=== PATIENT | male | born 1950 | race Two or more races ===

== ENCOUNTER 2017-10-15 09:48 | Outpatient (CLI) | payer MEDICARE ==
[2017-12-06] MEDS ORDERED: AMLO5TAB7 PO (15:59)
== END 2017-10-15 23:59 | disposition home or self-care (01) ==
LOC: RAD 09:48
PROVIDERS: ATTEND Internal Medicine Hematology & Oncology
DX: C18.9 Malignant neoplasm of colon, unspecified (principal)
CPT/HCPCS: 78306; A9503

== ENCOUNTER 2017-12-06 14:50 | Inpatient (IN) | payer MEDICARE ==
[~2017-12-06] VITALS: Ht 165.1 cm; Wt 93.4 kg
--- NOTE | 2017-12-06 15:20 | NUR ---
PT BIB DAUGHTER FOR RECTAL BLEED, BRIGHT RED PER DAUGTHER. STARTED HAVING DIARRHEA POST CHEMO. VSS. SEEN BY MD FOR EVAL. SAFETY AND COMFORT MEASURES PROVIDED. WILL MONITOR.
[2017-12-06] MEDS ORDERED: IV NS 0.9% 1,000 ML BAG IV ONE (15:30)
--- NOTE | 2017-12-06 15:40 | NUR ---
IV ACCESS STARTED. BLOOD DRAWN FOR LABS. MEDICATED ORDERED.
[2017-12-06 15:48] LABS: BASOPHILS # (AUTO) 0.2 /CMM (0.0-0.2); BASOPHILS % (AUTO) 2.1 % (0.0-2.0); EOSINOPHILS % (AUTO) 0.7 % (0.0-6.0); HEMATOCRIT 35 % (39-51); LYMPHOCYTES % (AUTO) 13.1 % (20.0-44.0); MEAN CORPUSCULAR HEMOGLOBIN 31 PG (26.0-33.0); MEAN CORPUSCULAR HGB CONC 34 g/dl (31.0-36.0); MEAN CORPUSCULAR VOLUME 91 fL (80-96); MONOCYTES # (AUTO) 0.7 /CMM (0.1-1.30); MONOCYTES % (AUTO) 10.1 % (2.0-12.0); NEUTROPHILS # (AUTO) 5.4 /CMM (1.8-8.9); PLATELET COUNT (AUTO) 257 /CMM (150-450); RDW COEFFICIENT OF VARIATION 18.9 (11.5-15.0); RED BLOOD CELL COUNT(AUTO) 3.86 MIL/uL (4.5-6.0); WHITE BLOOD COUNT (AUTO) 7.4 K/uL (4.3-11.0)
[2017-12-06] MEDS ORDERED: LORA1TAB PO (15:59)
[2017-12-06] MEDS ORDERED: ONDA8TAB9 PO (15:59)
[2017-12-06] MEDS ORDERED: TRIA1TAB3 PO (15:59)
[2017-12-06] MEDS ORDERED: CAPE500T15 PO (15:59)
[2017-12-06] MEDS ORDERED: ATOR10TA PO (15:59)
[2017-12-06] MEDS ORDERED: ERGO500014 PO (15:59)
[2017-12-06] MEDS ORDERED: LISI-603 PO (15:59)
[2017-12-06] MEDS ORDERED: AMLO5TAB2 PO (15:59)
[2017-12-06] MEDS ORDERED: DOCU-270 PO (15:59)
[2017-12-06] MEDS ORDERED: DEXA4TAB PO (15:59)
[2017-12-06] MEDS ORDERED: CLOP75TA15 PO (15:59)
[2017-12-06 16:02] LABS: INR 0.98 (0.85-1.15)
[2017-12-06 16:04] LABS: ALANINE AMINOTRANSFERASE 33 U/L (12-78); ALBUMIN 3.1 g/dL (3.4-5.0); ALKALINE PHOSPHATASE 132 U/L (46-116); ASPARTATE AMINOTRANSFERASE 59 U/L (15-37); BILIRUBIN,DIRECT 0.2 mg/dL (0.0-0.2); BILIRUBIN,TOTAL 0.5 mg/dL (0.2-1.0); CALCIUM, SERUM 7.6 mg/dL (8.5-10.1); CARBON DIOXIDE 20 mmol/L (21-32); CHLORIDE 95 mmol/L (98-107); CREATININE 0.6 mg/dL (0.6-1.3); GLUCOSE 117 mg/dL (74-106); LIPASE 191 U/L (73-393); POTASSIUM 3.1 mmol/L (3.5-5.1); SODIUM SERUM 126 mmol/L (136-145); TOTAL PROTEIN, SERUM 6.2 g/dL (6.4-8.2); UREA NITROGEN, BLOOD 9 mg/dL (7-18)
[2017-12-06 16:05] LABS: TROPONIN I < 0.017 ng/mL (0.00-0.056)
[2017-12-06] MEDS ORDERED: BEVA25VI IV (16:10)
--- NOTE | 2017-12-06 17:12 | NUR ---
REPORT GIVEN TO HERBERT NAILS FOR MS 204.
[2017-12-06 18:00] VITALS: BP 120/75
--- NOTE | 2017-12-06 18:00 | NUR ---
RECEIVED PATIENT FROM ER VIA GURNEY. PATIENT AMBULATORY, A/OX4, SERBIAN SPEAKING. CAME IN FOR GI BLEED/RECTAL BLEED. DARRON BENTLEY,[employer] ASSISTANT MANAGER NOTIFIED, AWAITING FOR ADMITTING ORDERS. FAMILY AT BEDSIDE. NO ACUTE DISTRESS, NO SOB. DENIED PAIN OR DISCOMFORT. IV SITE ON RIGHT HAND, PATENT AND INTACT. SAFETY MEASURES IN PLACE. BED IN LOW/LOCKED POSITION, SIDERAILS UPX2, CALL LIGHT IN REACH. WILL ENDORSED TO NIGHT RN FOR YUDY.
[2017-12-06] MEDS ORDERED: ONDANSETRON HCL/PF 4 MG/2 ML VIAL IVP PRN (18:30)
[2017-12-06] MEDS ORDERED: Z GUARD REMEDY 2 OZ OINT TP PRN (18:30)
[2017-12-06] MEDS ORDERED: MAGNESIUM HYDROXIDE 30 ML UDC PO PRN (18:30)
[2017-12-06] MEDS ORDERED: MORPHINE SULFATE INJ 2 MG/ML DISP.SYRIN IV PRN (18:30)
[2017-12-06] MEDS ORDERED: MAG HYDROX/AL HYDROX/SIMETH 30 ML UDC PO PRN (18:30)
[2017-12-06] MEDS ORDERED: ACETAMINOPHEN 325 MG TABLET PO PRN (18:30)
[2017-12-06] MEDS ORDERED: LORAZEPAM 1 MG TABLET PO PRN (18:30)
[2017-12-06] MEDS ORDERED: DOCUSATE SODIUM 100 MG CAPSULE PO PRN (18:30)
[2017-12-06] MEDS ORDERED: HYDROCODONE/APAP 5/325MG 1 EACH TABLET PO PRN (18:30)
[2017-12-06] MEDS: PANTOPRAZOLE 40 MG VIAL IV SCH (19:04)
--- NOTE | 2017-12-06 19:30 | NUR ---
ENDORSED PATIENT TO JESU VARGAS FOR YUDY. PATIENT IN STABLE CONDITION. KEPT PATIENT SAFE AND COMFORTABLE. FAMILY AT BEDSIDE. BED IN LOW/LOCKED POSIITON, SIDERAILS UPX2, CALL LIGHT IN REACH.
--- NOTE | 2017-12-06 19:35 | NUR ---
RN INITIAL NOTES: RECEIVED REPORT FROM HERBERT NAILS. PT IN BED, AWAKE, A/O X3 BULGARIAN SPEAKING ONLY FAMILY AT BED SIDE TRANSLATING FOR THE PT, SON WILL STAY 24/7 TO ASSIST PT AND HELP IN TRANSLATION. PT DENIES ANY PAIN OR DISCOMFORT ALTHOUGH VERBALIZING HE'S HAVING BLOODY STOOL, PT HAS RIGHT CW PORTACATH IN PLACED, NO S/S OF INFECTION OR REDNESS NOTED, SITE WAS COVERED WITH ROUND BANDAGE/BAND AID. PT HAS IV ACCESS ON RIGHT HAND G 20 PATENT AND FLUSHING WELL, ON HL. NO S/S OF REDNESS OR INFILTRATION NOTED ON SITE. PT IS AMBULATORY, SKIN CHECKED PERFORMED AND NO SKIN ISSUES NOTED. ORIENTED PT TO UNIT POLICY AND HOURLY ROUNDING. DISCUSSED PLAN OF CARE TO PT AND FAMILY. WILL MONITOR FOR FREQUENCY OF BLOODY STOOL AND AMOUNT (PLACED HAT IN THE TOILET BOWL). SAFETY PRECAUTIONS FOR FALL INITIATED, CALL LIGHT IN REACH, WILL CONTINUE MONITORING PT.
--- NOTE | 2017-12-06 19:40 | NUR ---
rn notes: paged epic java solutions architect regarding clarification of order, dr hopson placed admit to order as telemetry gi bleed, but on his h&p, plan is med surg admit. pt is a chemo patient from dr swain's office, with active gi bleed, and per pt and daughter he had clots noted, placed container/hat on pt's toilet bowl and instructed to saved stool and will be send to lab for stool ob. awaiting callback from
[2017-12-06 20:00] VITALS: BP 113/73
--- NOTE | 2017-12-06 20:06 | NUR ---
RN NOTES: RECEIVED CALL FROM JOSSY NAILS SUP, TRANSFER PT TO ROOM 103.
[2017-12-06 20:09] VITALS: BP 113/73
--- NOTE | 2017-12-06 20:23 | NUR ---
rn notes: received call from radiation therapy technologist md regarding pt's admit status, per radiation therapy technologist md pt okay to be med surg status, dx gi bleed, also md made aware of active gi bleeding of pt
[2017-12-06] MEDS: IV NS 0.9% 1,000 ML IV PRN (21:18)
--- NOTE | 2017-12-06 21:20 | NUR ---
rn notes: pt had bm, bloody stool small amount, stool will be sebd to lab for STOOL OB, lab made aware to tile picker specimen
[2017-12-07] VITALS: BP 115/75
--- NOTE | 2017-12-07 06:48 | NUR ---
rn closing notes: pt in bed, remains npo, iv access remains patent and flushing well, infusing with ns at 75ml/hr, iv site free from redness, no infiltration noted. vs remains stable, for gi consult, stool sent for ob awaiting result. pt remains to have bloody stool x1 small amount. hat remains in toilet bowl to assess amount of bleeding. safety precautions for fall remains engaged, call light in reach, will endorse to day rn for continuity of care.
--- NOTE | 2017-12-07 07:24 | NUR ---
RN OPENING NOTES RECEIVED PATIENT IN BED RESTING, IN STABLE CONDITION. FAMILY AT BEDSIDE FOR TRANSLATION. NO ACUTE DISTRESS, NO SOB. DENIED PAIN OR DISCOMFORT. IV SITE INTACT AND PATENT. KEPT PATIENT NPO. KEPT PATIENT SAFE AND COMFORTABLE. BED IN LOW/LOCKED POSITION, SIDERAILS UPX2, CALL LIGHT IN REACH. WILL CONTINUE TO MONITOR ACCORDINGLY.
[2017-12-07 07:48] LABS: BASOPHILS % (AUTO) 0.3 % (0.0-2.0); HEMATOCRIT 35 % (39-51); LYMPHOCYTES % (AUTO) 14.4 % (20.0-44.0); MEAN CORPUSCULAR HEMOGLOBIN 32 PG (26.0-33.0); MEAN CORPUSCULAR HGB CONC 35 g/dl (31.0-36.0); MEAN CORPUSCULAR VOLUME 94 fL (80-96); MONOCYTES # (AUTO) 0.6 /CMM (0.1-1.30); MONOCYTES % (AUTO) 9.6 % (2.0-12.0); NEUTROPHILS # (AUTO) 4.9 /CMM (1.8-8.9); NEUTROPHILS % (AUTO) 74.7 % (43.0-81.0); PLATELET COUNT (AUTO) 229 /CMM (150-450); RDW COEFFICIENT OF VARIATION 19.9 (11.5-15.0); WHITE BLOOD COUNT (AUTO) 6.6 K/uL (4.3-11.0)
[2017-12-07 08:00] VITALS: BP 104/59
[2017-12-07 08:03] LABS: CALCIUM, SERUM 7.4 mg/dL (8.5-10.1); CREATININE 0.6 mg/dL (0.6-1.3); MAGNESIUM 2.3 mg/dL (1.8-2.4); PHOSPHORUS 1.6 mg/dL (2.5-4.9); POTASSIUM 3.3 mmol/L (3.5-5.1)
[2017-12-07 08:07] LABS: THYROID STIMULATING HORMONE 1.375 uIU/mL (0.358-3.74)
[2017-12-07] MEDS: AMLODIPINE BESYLATE 5 MG TABLET PO SCH ×2 (09:00→17:20)
[2017-12-07] MEDS: LISINOPRIL (20MG) 20 MG TABLET PO SCH ×2 (09:00→17:21)
[2017-12-07] MEDS: PANTOPRAZOLE 40 MG VIAL IV SCH ×2 (09:43→17:18)
[2017-12-07] MEDS: IV NS 0.9% 1,000 ML IV PRN (09:48)
[2017-12-07] MEDS: ATORVASTATIN 10 MG TABLET PO SCH (11:33)
[2017-12-07] MEDS: POTASSIUM CL. PREMIX PERIPHER. 50 ML IV SCH ×2 (11:33→12:39)
--- NOTE | 2017-12-07 11:35 | NUR ---
ALIA JAQUEZ FOR GI ON BEDSIDE TALKING TO PATIENT. PLAN FOR EGD/COLONOSCOPY ON SATURDAY.
[2017-12-07 11:53] LABS: IRON, SERUM 51 ug/dl (50-175); TOTAL IRON BINDING CAPACITY 238 ug/dl (250-450)
[2017-12-07] MEDS ORDERED: K PHOS NEUTRAL 250 MG TABLET PO ONE (12:00)
[2017-12-07 12:07] LABS: OCCULT BLOOD STOOL POSITIVE (NEGATIVE)
[2017-12-07 16:00] VITALS: BP 120/72
[2017-12-07] MEDS: SUCRALFATE 1 G TABLET PO SCH ×2 (17:21→21:30)
--- NOTE | 2017-12-07 19:00 | NUR ---
RN CLOSING NOTES PATIENT IN STABLE CONDITION. ALL NEEDS ATTENDED AND PROVIDED. KEPT PATIENT SAFE AND COMFORTABLE. BED IN LOW/LOCKED POSITION, CALL LIGHT IN REACH. ENDORSED TO NIGHT RN FOR YUDY.
--- NOTE | 2017-12-07 19:15 | NUR ---
RN INITIAL NOTES: RECEIVED REPORT FROM HERBERT NAILS, PT IN BED, AWAKE, A/O X3 ON RA RESPIRATION EVEN AND UNLABORED, DENIES ANY PAIN AT THIS TIME. FAMILY AT BED SIDE. REPORTED PT TO HAVE SOFT STOOL BLACK IN COLOR, MD AWARE. PT SCHEDULED FOR EGD COLONOSCOPY ON SATURDAY PER GI 12/09/17, CONSENT SECURED BY DAY JESU GODINEZ SIGNED BY PT'S DAUGHTER. DAUGHTER STATED GI EXPLAINED TO THEM ABOUT POSSIBILITY OF STARTING BOWEL PREP TONIGHT TO MAKE SURE PT IS WELL CLEAN BEFORE PROCEDURE. IV ACCESS ON RIGHT HAND G 20 PATENT AND FLUSHING WELL, FREE FROM REDNESS OR INFILTRATION, INFUSING WITH NS AT 75ML/HR. PT TOLERATING CLEAR LIQUID DIET. RIGHT CW PORTACATH IN PLACED, NO S/S OF INFECTION NOTED, NO REDNESS, NO DRAINAGE NOTED. REMAIN WITH COVER. DISCUSSED PLAN OF CARE FOR TONIGHT. SAFETY PRECAUTIONS FOR FALL INITIATED, CALL LIGHT IN REACH, WILL CONTINUE MONITORING PT.
--- NOTE | 2017-12-07 19:30 | NUR ---
JESU NOTES: LEONID MENDEZ,GIVEN ORDER TO START BOWEL PREP FOR THE PT TONIGHT, THERE'S A SCHEDULE EGD/COLONOSCOPY ON Saturday12/09/17 FOR THE PT. ND IN [facility] THERE'S SCHEDULE MAG CITRATE AND GOLYTELY PREP FOR TOMORROW DATED 12/08 AT 0700AM. CLARIFIED WITH LEONID IF SHE WANTS TO START THE PREP TONIGHT, PER GI, "START BOWEL PREP TONIGHT 12/07/18" Addendum: 12/07/17 at 2015 by BELIA FLORES RN CORRECTION OF DATE: JESU NOTES: LEONID MENDEZ,GIVEN ORDER TO START BOWEL PREP FOR THE PT TONIGHT, THERE'S A SCHEDULE EGD/COLONOSCOPY ON Saturday12/09/17 FOR THE PT. ND IN [facility] THERE'S SCHEDULE MAG CITRATE AND GOLYTELY PREP FOR TOMORROW DATED 12/08 AT 0700AM. CLARIFIED WITH LEONID IF SHE WANTS TO START THE PREP TONIGHT, PER GI, "START BOWEL PREP TONIGHT 12/07/17"
[2017-12-07 20:00] VITALS: BP_SYST 121; BP_DIAS 72; BP_DIAS 78
[2017-12-07] MEDS ORDERED: MAGNESIUM CITRATE 296 ML BOTTLE PO ONE (20:30)
[2017-12-07] MEDS ORDERED: PEG 3350/NA SULF,BICARB,CL/KCL 4,000 ML BOTTLE PO ONE (20:30)
--- NOTE | 2017-12-07 20:42 | NUR ---
RN NOTES: RECEIVED CALL FROM LEONID CHRIS GI RESIDENT SERVICE COORDINATOR, SHE STATED "START BOWEL PREP FIRST THING IN THE MORNING TOMORROW WITH HIS MORNING MEDS 12/08/17 AT 0700AM"
[2017-12-07] MEDS ORDERED: ZOLP10TA6 PO (20:55)
--- NOTE | 2017-12-07 21:08 | NUR ---
RN NOTES: PT'S DAUGHTER TRANSLATED FOR THE PT, PT REQUESTING HIS SLEEPING PILL, SHE STATED PT ON SLEEPING PILL AT HOME, AMBIEN 10MG TAB EVERY NIGHT FOR SLEEP, PAGED EPIC PROCUREMENT ASSISTANT PT DOESNT HAVE ANY PRN SLEEPING PILL ORDER, AWAITING CALLBACK
--- NOTE | 2017-12-07 21:12 | NUR ---
RN NOTES: RECEIVED CALLBACK FROM SWEATBAND CUTTING MACHINE OPERATOR EPIC , GERONIMO DUMAS TO GIVE AMBIEN 10 MG TAB HS PRN FOR SLEEP
[2017-12-07] MEDS ORDERED: ZOLPIDEM TARTRATE 10 MG TABLET PO PRN (21:30)
--- NOTE | 2017-12-07 21:30 | NUR ---
PRN AMBIEN: PT REQUESTED SLEEPING PILL, PRN AMBIEN 10 MG ADMINISTERED AT THIS TIME, OKAY TO GIVE PER MD
[2017-12-08] MEDS: IV NS 0.9% 1,000 ML IV PRN ×2 (01:41→15:13)
--- NOTE | 2017-12-08 05:57 | NUR ---
RN NOTES: PT ACCIDENTALLY KNOCK OFF IV ACCESS WHEN HE USED THE BATHROOM, PRESSURED DRESSING APPLIED. PT PREFERS TO USE RIGHT HAND ONLY FOR IV STATED HE'S LEFT HANDED AND USING LEFT HAND IN DOING DAILY ROUTINES, ALL TRANSLATED BY LISA AUGUSTE. NEW IV ACCESS INSERTED ON RIGHT HAND G 22, GOOD BLOOD RETURN NOTED, FLUSHED WITH SALINE, CONNECTED BACK TO IVF.
[2017-12-08] MEDS: SUCRALFATE 1 G TABLET PO SCH ×4 (06:30→22:52)
--- NOTE | 2017-12-08 06:30 | NUR ---
RN NOTES: STARTED BOWEL PREP. INSTRUCTED PT TO DRINK GOLYTELY, HE PREFERRED LEMON FLAVOR, POUR IT ON A CUP, AND THE REST WAS TRANSFERRED TO A PITCHER SO ITS EASY FOR PT TO POUR THE GOLYTELY ON HIS OWN. MAG CITRATE TO BE DRINK AFTER HE FINISHED THE GOLYTELY, PT UNDERSTAND, ALL TRANSLATED BY MOLINA BASHIR CNA
--- NOTE | 2017-12-08 06:44 | NUR ---
RN CLOSING NOTES: PT IN BED, AWAKE, TAKING GOLYTELY AT THIS TIME WITH LEMON FLAVOR, DENIES ANY PAIN OR DISCOMFORT AT THIS TIME, IV ACCESS REMAINS PATENT AND FLUSHING WELL, INFUSING WITH NS AT 75ML/HR. SITE FREE FROM REDNESS OR INFILTRATION. VS REMAINS STABLE, NEEDS ATTENDED, SAFETY PRECAUTIONS FOR FALL REMAINS ENGAGED, CALL LIGHT IN REACH, WILL ENDORSE TO DAY RN FOR YUDY.
[2017-12-08 06:47] LABS: BASOPHILS # (AUTO) 0.1 /CMM (0.0-0.2); BASOPHILS % (AUTO) 1.4 % (0.0-2.0); EOSINOPHILS % (AUTO) 2.6 % (0.0-6.0); HEMATOCRIT 34 % (39-51); HEMOGLOBIN 11.3 g/dL (13.5-17.5); LYMPHOCYTES # (AUTO) 1.2 /CMM (0.8-4.8); MEAN CORPUSCULAR HEMOGLOBIN 31 PG (26.0-33.0); MEAN CORPUSCULAR HGB CONC 33 g/dl (31.0-36.0); MEAN CORPUSCULAR VOLUME 95 fL (80-96); MONOCYTES # (AUTO) 0.7 /CMM (0.1-1.30); MONOCYTES % (AUTO) 10.3 % (2.0-12.0); NEUTROPHILS # (AUTO) 4.3 /CMM (1.8-8.9); NEUTROPHILS % (AUTO) 66.7 % (43.0-81.0); PLATELET COUNT (AUTO) 217 /CMM (150-450); RDW COEFFICIENT OF VARIATION 19.7 (11.5-15.0); RED BLOOD CELL COUNT(AUTO) 3.61 MIL/uL (4.5-6.0); WHITE BLOOD COUNT (AUTO) 6.4 K/uL (4.3-11.0)
[2017-12-08] MEDS ORDERED: MAGNESIUM CITRATE 296 ML BOTTLE PO ONE (07:00)
[2017-12-08] MEDS ORDERED: PEG 3350/NA SULF,BICARB,CL/KCL 4,000 ML BOTTLE PO ONE (07:00)
[2017-12-08 07:10] LABS: CALCIUM, SERUM 7.3 mg/dL (8.5-10.1); CREATININE 0.6 mg/dL (0.6-1.3); PHOSPHORUS 1.6 mg/dL (2.5-4.9); POTASSIUM 3.6 mmol/L (3.5-5.1)
--- NOTE | 2017-12-08 07:30 | NUR ---
MS RN OPENING NOTES RECEIVED PT STANDING IN ROOM WATCHING TELEVISION. PT IS A/O X3, AFEBRILE. RESPIRATIONS ARE EVEN AND UNLABORED, NOT IN ANY ACUTE DISTRESS NOTED. PT DENIES ANY PAIN AT THIS TIME, NO N/V OR SOB NOTED. PT STARTED ON GOLYTELY AND TOLERATING WELL. IV SITE INTACT, NO INFILTRATION NOTED. DRESSING KEPT CLEAN AND DRY. SAFETY MEASURES ARE IN PLACE. INSTRUCTED PT TO USE CALL LIGHT WHEN ASSISTANCE IS NEEDED, CALL LIGHT IS LEFT WITHIN REACH. WILL CONTINUE TO MONITOR THROUGHOUT SHIFT FOR CONTINUITY OF CARE.
[2017-12-08 08:00] VITALS: BP 123/65
[2017-12-08] MEDS: ATORVASTATIN 10 MG TABLET PO SCH (08:53)
[2017-12-08] MEDS: AMLODIPINE BESYLATE 5 MG TABLET PO SCH ×2 (08:53→16:34)
[2017-12-08] MEDS: PANTOPRAZOLE 40 MG VIAL IV SCH ×2 (08:53→16:33)
[2017-12-08] MEDS: LISINOPRIL (20MG) 20 MG TABLET PO SCH ×2 (08:54→16:34)
[2017-12-08] MEDS ORDERED: ERGOCALCIFEROL (VITAMIN D 2) 50,000 UNIT CAPSULE PO SCH (09:00)
[2017-12-08] MEDS ORDERED: NEUTRA PHOS 1 POWD.PACKET PO ONE (11:00)
--- NOTE | 2017-12-08 11:00 | NUR ---
MS RN NOTES PT SEEN AND EXAMINED BY DARRON BENTLEY NP AT BEDSIDE.
[2017-12-08 16:00] VITALS: BP 121/71
--- NOTE | 2017-12-08 18:10 | NUR ---
MS RN CLOSING NOTES ALL DUE MEDS GIVEN, NEEDS MET AND ANTICIPATED. PT REMAINS A/O X3-4, AFEBRILE. RESPIRATIONS ARE EVEN AND UNLABORED, NOT IN ANY ACUTE DISTRESS NOTED. PT DENIES ANY PAIN, N/V, SOB. IV SITE INTACT, NO INFILTRATION NOTED. DRESSING KEPT CLEAN AND DRY. IV FLUIDS INFUSING AT 75ML/HR AND TOLERATING WELL. SAFETY MEASURES ARE IN PLACE. CALL LIGHT IS LEFT WITHIN REACH. WILL ENDORSE TO NEXT SHIFT FOR CONTINUITY OF CARE.
--- NOTE | 2017-12-08 19:35 | NUR ---
RN OPENING NOTES RECEIVED REPORT FROM VALDEMAR KERN. FOUND Pt AWAKE, SITTING UP IN BED. FAMILY VISITING AT BEDSIDE. Pt IS A/OX4, TURKISH SPEAKING ONLY, IS VERBAL, AND ABLE TO MAKE NEEDS KNOWN. NO S/S OF ACUTE DISTRESS OR SOB NOTED. NO C/O PAIN AT THIS TIME. IV ACCESS ON RHAND #22G, NS @75ML/HR. Pt SCHEDULED FOR EGD/COLONOSCOPY TOMORROW SATURDAY AM; CONSENT SIGNED. WILL BE NPO STARTING JOHANA EVANS. SAFETY MEASURES IN PLACE. BED LOW, LOCKED, HOB ELEVATED, SIDE RAILS UP, CALL LIGHT AND BEDSIDE TABLE WITHIN REACH. WILL CONTINUE TO MONITOR Pt THROUGHOUT THE NIGHT FOR SAFETY.
[2017-12-08 20:00] VITALS: BP 141/79
--- NOTE | 2017-12-08 21:00 | NUR ---
JULES COSTA (DAUGHTER):
[2017-12-09] MEDS ORDERED: NA PHOS,M-B/NA PHOS,DI-BA 1 EA ENEMA RC PRN (06:00)
--- NOTE | 2017-12-09 06:30 | NUR ---
RN CLOSING NOTES NO SIGNIFICANT CHANGES IN Pt's CONDITION. Pt REMAINS STABLE AT THIS TIME. NO S/S OF ACUTE DISTRESS OR SOB NOTED DURING THE NIGHT. ALL NEEDS MET AND ATTENDED TO. SAFETY MEASURES IN PLACE. BED LOW, LOCKED, HOB ELEVATED, SIDE RAILS UP, CALL LIGHT AND BEDSIDE TABLE WITHIN REACH. Pt HAS BEEN NPO SINCE JOHANA EVANS. SCHEDULED FOR EDG AND COLONOSCOPY TODAY AT 0830AM. WILL ENDORSE TO DAYSHIFT RN FOR Pt's YUDY.
[2017-12-09] MEDS ORDERED: ANESTHESIA TRAY IN PYXIS 1 EA TRAY MC ONE (07:18)
[2017-12-09 07:21] LABS: CALCIUM, SERUM 7.7 mg/dL (8.5-10.1); CREATININE 0.6 mg/dL (0.6-1.3); PHOSPHORUS 1.7 mg/dL (2.5-4.9); POTASSIUM 3.3 mmol/L (3.5-5.1)
--- NOTE | 2017-12-09 07:30 | NUR ---
RN OPENING NOTES RECEIVED PATIENT IN BED RESTING, IN STABLE CONDITION. NO ACUTE DISTRESS, NO SOB. DENIED PAIN OR DISCOMFORT. IV SITE INTACT AND PATENT. SCHEDULED FOR EDG/COLONOSCOPY TODAY. KEPT PATIENT SAFE AND COMFORTABLE. BED IN LOW/LOCKED POSITION, SIDERAILS UPX2, CALL LIGHT IN REACH. WILL CONTINUE TO MONITOR ACCORDINGLY.
[2017-12-09 08:00] VITALS: BP 130/74
--- NOTE | 2017-12-09 08:42 | NUR ---
RN NOTES PATIENT GOT PICKED UP FOR EGD/COLONOSCOPY.
[2017-12-09 09:44] LABS: BASOPHILS # (AUTO) 0.1 /CMM (0.0-0.2); BASOPHILS % (AUTO) 1.2 % (0.0-2.0); EOSINOPHILS % (AUTO) 1.9 % (0.0-6.0); HEMATOCRIT 37 % (39-51); HEMOGLOBIN 12.2 g/dL (13.5-17.5); LYMPHOCYTES # (AUTO) 1.1 /CMM (0.8-4.8); LYMPHOCYTES % (AUTO) 15.8 % (20.0-44.0); MEAN CORPUSCULAR HEMOGLOBIN 31 PG (26.0-33.0); MEAN CORPUSCULAR HGB CONC 33 g/dl (31.0-36.0); MEAN CORPUSCULAR VOLUME 95 fL (80-96); MONOCYTES # (AUTO) 0.6 /CMM (0.1-1.30); MONOCYTES % (AUTO) 8.9 % (2.0-12.0); NEUTROPHILS # (AUTO) 5.1 /CMM (1.8-8.9); NEUTROPHILS % (AUTO) 72.2 % (43.0-81.0); PLATELET COUNT (AUTO) 232 /CMM (150-450); RDW COEFFICIENT OF VARIATION 19.9 (11.5-15.0); RED BLOOD CELL COUNT(AUTO) 3.88 MIL/uL (4.5-6.0); WHITE BLOOD COUNT (AUTO) 7.1 K/uL (4.3-11.0)
[2017-12-09 10:13] VITALS: BP 141/84
--- NOTE | 2017-12-09 10:15 | NUR ---
CAME BACK FROM EGD/COLONOSCOPY. VSS. WILL MONITOR ACCORDINGLY
[2017-12-09] MEDS: SUCRALFATE 1 G TABLET PO SCH ×2 (10:33→13:20)
[2017-12-09] MEDS: AMLODIPINE BESYLATE 5 MG TABLET PO SCH (10:33)
[2017-12-09] MEDS: ATORVASTATIN 10 MG TABLET PO SCH (10:33)
[2017-12-09 10:34] VITALS: BP 141/84
[2017-12-09] MEDS: LISINOPRIL (20MG) 20 MG TABLET PO SCH (10:34)
[2017-12-09] MEDS: PANTOPRAZOLE 40 MG VIAL IV SCH (10:34)
[2017-12-09] MEDS: POTASSIUM CL. PREMIX PERIPHER. 50 ML IV SCH ×2 (11:30→12:30)
[2017-12-09] MEDS ORDERED: K PHOS NEUTRAL 250 MG TABLET PO ONE (12:30)
--- NOTE | 2017-12-09 15:36 | NUR ---
DISCHARGED PATIENT IN STABLE CONDITION, PICKED BY DAUGHTER UP, ACCOMPANIED BY LISA VELEZ TO THE LOBBY VIA WHEELCHAIR. DISCHARGE INSTRUCTIONS GIVEN, VERBALIZED UNDERSTANDING, PAPERWORK GIVEN, ALL BELONGINGS RETURNED, FORM SIGNED. REMOVED IV, APPLIED PRESSURE, NO BLEEDING, NO COMPLICATION. REMOVED NAME BAND.
== END 2017-12-09 15:41 | disposition home or self-care (01) | DRG 375 ==
LOC: ER 14:51 → TELE 16:06 → TELE2 16:53 → MEDSG2 21:59
PROVIDERS: ADMIT Nurse Practitioner Acute Care; ATTEND Nurse Practitioner Acute Care
PROC: 0DB78ZX Excision of Stomach, Pylorus, Via Natural or Artificial Opening Endoscopic, Diagnostic (ICD-10-PCS; principal; 2017-12-09 08:41)
PROC: 0DJD8ZZ Inspection of Lower Intestinal Tract, Via Natural or Artificial Opening Endoscopic (ICD-10-PCS; 2017-12-09 08:41)
DX: C18.7 Malignant neoplasm of sigmoid colon (principal); C78.7 Secondary malignant neoplasm of liver and intrahepatic bile duct; C79.51 Secondary malignant neoplasm of bone; E44.1 Mild protein-calorie malnutrition; E87.1 Hypo-osmolality and hyponatremia; J98.11 Atelectasis; I10 Essential (primary) hypertension; Z79.899 Other long term (current) drug therapy; E86.0 Dehydration; E87.6 Hypokalemia; F41.9 Anxiety disorder, unspecified; E78.5 Hyperlipidemia, unspecified; E83.51 Hypocalcemia; D64.9 Anemia, unspecified; Z96.651 Presence of right artificial knee joint; K44.9 Diaphragmatic hernia without obstruction or gangrene; N40.0 Benign prostatic hyperplasia without lower urinary tract symptoms; K59.09 Other constipation; I70.0 Atherosclerosis of aorta; E83.39 Other disorders of phosphorus metabolism
CPT/HCPCS: 36415; 71045-TC; 74018; 80048-TC; 80061-TC; 80076-TC; 82272-TC; 83540-TC; 83690-TC; 83735-TC; 84100-TC; 84443-TC; 84484-TC; 85025-TC; 85730-TC; 86850-TC; 87081-TC; 88305-TC; 88313-TC; 88342; A4606; C9113; J3480; J7030; Z7610